=== PATIENT | female | born 1960 | race Hispanic/Latino ===

== ENCOUNTER 2017-04-14 01:40 | Emergency (ER) | payer OTHER ==
[2017-04-14 01:52] VITALS: BP 145/78; PULSE 78; RESP 18; TEMP 97.8; O2SAT 100
--- NOTE | 2017-04-14 02:43 | ED PDOC ---
HPI: Head Injury Time Seen by Provider: 04/14/17 02:00 Chief Complaint (Nursing): Abnormal Skin Integrity Chief Complaint (Provider): fall, scalp laceration History Per: Patient, Family History/Exam Limitations: no limitations Injury Occurred (Timing): Just Before Arrival Additional History Per: Patient, Family Additional Complaint(s): 56 y/o female no past medical history presents with scalp laceration status- post trip and fall sustained prior to arrival. Patient's states they had a few drinks tonight, he was upstairs and heard a "thump"; when he came downstairs he found patient face up and was unresponsive for approximately 3 minutes. Patient denies headache, dizziness, nausea/vomiting, extremity numbness/weakness, vision changes. Tetanus up to date. Past Medical History Reviewed: Historical Data, Nursing Documentation, Vital Signs Vital Signs: Last Vital Signs Temp 97.8 F 04/14/17 01:50 Pulse 78 04/14/17 01:50 Resp 18 04/14/17 01:50 BP 145/78 04/14/17 01:50 Pulse Ox 100 04/14/17 01:50 - Medical History PMH: No Chronic Diseases - Surgical History Surgical History: No Surg Hx - Family History Family History: States: No Known Family Hx - Living Arrangements Living Arrangements: With Family - Allergies Allergies/Adverse Reactions: Allergies Allergy/AdvReac Type Severity Reaction Status Date / Time No Known Allergies Allergy Verified 04/14/17 01:51 Review of Systems ROS Statement: Except As Marked, All Systems Reviewed And Found Negative Skin: Positive for: Lesions (scalp laceration) Physical Exam - Reviewed Nursing Documentation Reviewed: Yes Vital Signs Reviewed: Yes - Physical Exam Appears: Positive for: Well, Non-toxic, No Acute Distress Head Exam: Negative for: ATRAUMATIC (Left temporal hematoma. 0.5cm left parietal scalp laceration, no active bleeding. ) Skin: Positive for: Normal Color Eye Exam: Positive for: Normal appearance, EOMI, PERRL Cardiovascular/Chest: Positive for: Regular Rate, Rhythm Respiratory: Positive for: Normal Breath Sounds Gastrointestinal/Abdominal: Positive for: Normal Exam Extremity: Positive for: Normal ROM Neurologic/Psych: Positive for: Alert, Oriented, Other (+AOB) - ECG O2 Sat by Pulse Oximetry: 100 - Progress ED Course And Treament: CT head Verbal consent given by patient for lac repair. Area irrigated with 200mL normal saline. 2 tracy used to close wound. Bacitracin applied. EXAM: CT Head Without Intravenous Contrast CLINICAL HISTORY: 56 years old, female; Injury or trauma; Fall; Initial encounter; Blunt trauma ( contusions or hematomas); Additional info: Head injury, ETOH TECHNIQUE: Axial computed tomography images of the head/brain without intravenous contrast. All CT scans at this facility use one or more dose reduction techniques, viz.: automated exposure control; ma/kV adjustment per patient size (including targeted exams where dose is matched to indication; i.e. head); or iterative reconstruction technique. 286 images are submitted. Coronal and sagittal reformatted images were created and reviewed. COMPARISON: No relevant prior studies available. FINDINGS: Brain: Unremarkable. No hemorrhage. No significant white matter disease. No edema. Ventricles: Unremarkable. No ventriculomegaly. Bones/joints: Unremarkable. No acute fracture. Soft tissues: Left frontal and left convexity scalp soft tissue swelling. There are left convexity skin tracy. Sinuses: Unremarkable. No acute sinusitis. Mastoid air cells: Unremarkable. No mastoid effusion. Other findings: Bilateral distal ganglia calcifications. IMPRESSION: 1. Left frontal and left convexity scalp soft tissue swelling. There are left convexity skin tracy. 2. No evidence of an acute intracranial hemorrhage, midline shift or mass effect is identified. Patient educated on findings, discharged with instructions to follow up PMD 2-3 days. Advised ice application. Staple removal 8-10 days. Return to ED for worsening/concerning symptoms. Disposition - Clinical Impression Clinical Impression: Head injury, Scalp laceration - Patient ED Disposition Is Patient to be Admitted: No Counseled Patient/Family Regarding: Studies Performed, Diagnosis, Need For Followup - Disposition Disposition: Routine/Home Disposition Time: 04:52 Condition: STABLE Additional Instructions: Follow up with primary doctor in 2-3 days. Staple removal 8-10 days. Ice affected area. Take tylenol or ibuprofen as needed for pain. Return to ED for worsening/concerning symptoms. Instructions: Head Injury (ED), Laceration (ED), Staple Care (ED)
--- NOTE | 2017-04-14 08:32 | CT ---
PROCEDURE: CT HEAD WITHOUT CONTRAST. HISTORY: head injury, etoh COMPARISON: None available. TECHNIQUE: Axial computed tomography images were obtained through the head/brain without intravenous contrast. Radiation dose: Total exam DLP = 775.48 mGy-cm. This CT exam was performed using one or more of the following dose reduction techniques: Automated exposure control, adjustment of the mA and/or kV according to patient size, and/or use of iterative reconstruction technique. FINDINGS: HEMORRHAGE: No intracranial hemorrhage. BRAIN: No mass effect or edema. No atrophy or chronic microvascular ischemic changes. VENTRICLES: Unremarkable. No hydrocephalus. CALVARIUM: Unremarkable. PARANASAL SINUSES: Unremarkable as visualized. No significant inflammatory changes. MASTOID AIR CELLS: Unremarkable as visualized. No inflammatory changes. OTHER FINDINGS: Left frontal scalp contusion. IMPRESSION: No acute intracranial abnormalities. No significant findings to account for the clinical presentation. Concordant results (preliminary interpretation) provided by [facility]. Procedure Completed: 03:53 Preliminary ([facility]) Report: Dictated and Authenticated: 04:45 Final Interpretation: 08:30October 2016.
== END 2017-04-14 04:55 | disposition home or self-care (01) ==
LOC: H.ER 01:40
DX: S09.90XA Unspecified injury of head, initial encounter (principal); S01.01XA Laceration without foreign body of scalp, initial encounter; W19.XXXA Unspecified fall, initial encounter; Y92.89 Other specified places as the place of occurrence of the external cause

== ENCOUNTER 2017-04-23 15:19 | Emergency (ER) | payer OTHER ==
[2017-04-23 15:40] VITALS: BP 99/65; PULSE 76; RESP 16; TEMP 97.1; O2SAT 98
--- NOTE | 2017-04-23 15:49 | ED PDOC ---
HPI: Wound Care - HPI Time Seen by Provider: 04/23/17 15:40 Chief Complaint (Nursing): Suture/Staple Removal Chief Complaint (Provider): Staple Removal History Per: Patient Exam Limitations: no limitations Onset/Duration Of Symptoms: Days (x10) Additional Complaint(s): Dia Aguero is a 56 year old female that presents to the ED for a staple removal on left scalp. Patient had tracy placed 10 days ago in ED after sustaining a laceration to the area status post trip and fall. She denies any current pain or complications. Tetanus vaccination up to date. Past Medical History Reviewed: Historical Data, Nursing Documentation, Vital Signs Vital Signs: Last Vital Signs Temp 97.1 F L 04/23/17 15:36 Pulse 76 04/23/17 15:36 Resp 16 04/23/17 15:36 BP 99/65 L 04/23/17 15:36 Pulse Ox 98 04/23/17 15:36 - Medical History PMH: No Chronic Diseases - Family History Family History: States: No Known Family Hx - Living Arrangements Living Arrangements: With Family - Social History Current smoker - smoking cessation education provided: Yes - Immunization History Hx Tetanus Toxoid Vaccination: Yes - Allergies Allergies/Adverse Reactions: Allergies Allergy/AdvReac Type Severity Reaction Status Date / Time Penicillins Allergy RASH Verified 04/23/17 15:36 Review of Systems ROS Statement: Except As Marked, All Systems Reviewed And Found Negative Skin: Positive for: Other (needs staple removal from scalp) Physical Exam - Reviewed Nursing Documentation Reviewed: Yes Vital Signs Reviewed: Yes - Physical Exam Appears: Positive for: Non-toxic, No Acute Distress Head Exam: Positive for: ATRAUMATIC (Well healed stapled laceration noted to left parietal lobe, no infection, N/V intact), NORMOCEPHALIC Skin: Positive for: Normal Color, Warm Eye Exam: Positive for: Normal appearance Neurologic/Psych: Positive for: Alert, Oriented. Negative for: Motor/Sensory Deficits - ECG O2 Sat by Pulse Oximetry: 98 (RA) Pulse Ox Interpretation: Normal Medical Decision Making Medical Decision Making: Impression: Staple Removal Plan: Two tracy removed from left scalp without any difficulty. Wound is well healed. Advised patient to keep area clean and dry, and to follow up with PMD as necessary. Patient is stable for discharge home. Scribe Attestation: Documented by Nell Phillips, acting as a scribe for Desirae Garrison PA-C. Provider Scribe Attestation: All medical record entries made by the Scribe were at my direction and personally dictated by me. I have reviewed the chart and agree that the record accurately reflects my personal performance of the history, physical exam, medical decision making, and the department course for this patient. I have also personally directed, reviewed, and agree with the discharge instructions and disposition. Disposition - Clinical Impression Clinical Impression: Removal of staple - Patient ED Disposition Is Patient to be Admitted: No Counseled Patient/Family Regarding: Need For Followup - Disposition Referrals: [facility] [Outside] Disposition: Routine/Home Disposition Time: 15:51 Condition: STABLE Additional Instructions: Keep area clean and dry. Follow up as needed with primary care doctor. Instructions: Stitches Removal (ED) Forms: [employer] ([place]ian)
== END 2017-04-23 15:54 | disposition home or self-care (01) ==
LOC: H.ER 15:19
DX: Z48.02 Encounter for removal of sutures (principal)